=== PATIENT | male | born 1965 | race Caucasian/White ===

== ENCOUNTER 2020-09-05 06:26 | Day surgery (SDC) | payer OTHER ==
[2020-09-05] MEDS ORDERED: Sodium Chloride 0.9% 1,000 ML IV SCH (07:00)
[2020-09-05] MEDS ORDERED: Propofol 200 MG/20 ML SDV ONE ×2 (07:02→07:40)
[2020-09-05] MEDS ORDERED: fentaNYL 100 MCG/2 ML SDV ONE (07:02)
[2020-09-05] MEDS ORDERED: Midazolam 1 MG/ML 2 ML SDV ONE (07:02)
--- NOTE | 2020-09-05 09:12 | OR ---
DATE OF PROCEDURE: 09/05/2020 SURGEON: Sj Mckeon MD PROCEDURE: Colonoscopy. FINDINGS: Large, approximately 2 cm polypoid-type mass at 23 cm. COMPLICATIONS: None. TOASTER OPERATOR: None. PREOPERATIVE DIAGNOSIS: Positive FIT test. POSTOPERATIVE DIAGNOSIS: Positive FIT test. FINDINGS: Large polyp consistent with etiology for positive FIT test. RISKS: Risks, benefits, alternatives and limitations including but not limited to infection, bleeding, perforation, false positives and false negatives were explained to the patient who wished to proceed. PROCEDURE IN DETAIL: The patient was placed in left lateral decubitus position. Digital rectal exam was performed without abnormality. Scope was introduced and advanced atraumatically to the ileocecal valve. A photo was taken. The scope was brought back to the ascending, transverse, descending colon and retroflexed. The aforementioned polyp was identified and completely removed using a snare. Of note, the specimen was transected as a single lesion, however, during the suction and removal process, this into multiple pieces due to its fragile nature. This stump was then reinspected, injected with Opal ink and no abnormalities were noted. The patient tolerated the procedure well. No bleeding was noted from the stump after removal and greater than 8 minutes was spent removing the scope. The patient tolerated the procedure well. Sj Mckeon MD /[id number]
== END 2020-09-05 09:00 | disposition home or self-care (01) ==
LOC: JP.SDS 06:26
PROVIDERS: ATTEND Surgery
DX: D12.6 Benign neoplasm of colon, unspecified (principal); I10 Essential (primary) hypertension
CPT/HCPCS: 45385; J2250; J2704; J3010; J7030; 88305

== ENCOUNTER 2024-11-10 09:12 | Emergency (ER) | payer OTHER ==
[2024-11-10] MEDS ORDERED: LORazepam 2 MG/ML SDV IVPUSH PRN (10:23)
[2024-11-10 10:28] LABS: BASOPHILS PERCENT AUTO 0.3 % (0.1-1.3); EOSINOPHILS ABSOLUTE AUTO 0.03 K/uL (0.00-0.40); EOSINOPHILS PERCENT AUTO 0.5 % (0.0-5.4); HEMATOCRIT 22.6 % (38.4-49.7); HEMOGLOBIN 8.3 g/dL (12.9-16.9); IMMATURE GRAN ABSOLUTE AUTO 0.08 K/uL (0.00-0.23); IMMATURE GRAN PERCENT AUTO 1.2 % (0.0-0.7); LYMPHOCYTES ABSOLUTE AUTO 0.23 K/uL (0.8-3.3); LYMPHOCYTES PERCENT AUTO 3.5 % (11.4-47.7); MEAN CORPUSCULAR HEMOGLOBIN 34.7 pg (31.6-35.5); MEAN CORPUSCULAR HGB CONC 36.7 g/dL (31.6-35.5); MEAN CORPUSCULAR VOLUME 94.6 fL (81.4-99.0); MONOCYTES ABSOLUTE AUTO 0.56 K/uL (0.20-0.90); MONOCYTES PERCENT AUTO 8.5 % (3.3-12.6); PLATELET COUNT,PLT 58 K/uL (130-375); RED BLOOD CELL COUNT 2.39 M/uL (4.14-5.76); WHITE BLOOD CELL COUNT,WBC 6.6 K/uL (3.2-11.0)
[2024-11-10 10:29] LABS: BICARBONATE,VENOUS 26.2 mmol/L; O2 SATURATION VENOUS 34.4; OXYHEMOGLOBIN 33.4 %; PH,VENOUS 7.475 (7.350-7.450); TOTAL HEMOGLOBIN 8.6 g/dL (13.5-18.0)
[2024-11-10 10:32] LABS: PO2 VENOUS 25.1 mm/Hg
[2024-11-10 10:33] LABS: BASOPHILS ABSOLUTE AUTO 0.02 K/uL (0.00-0.10)
[2024-11-10] MEDS: Sodium Chloride 0.9% 1,000 ML IV ONE (10:50)
[2024-11-10 10:59] LABS: A/G RATIO 0.5 (1.2-2.2); ALANINE AMINOTRANSFERASE,ALT 44 U/L (12-78); ALBUMIN 2.1 g/dL (3.4-5.0); ALKALINE PHOSPHATASE 477 U/L (46-116); ASPARTATE AMNIOTRANSFERASE,AST 201 U/L (15-37); BILIRUBIN TOTAL 13.3 mg/dL (0.2-1.0); BLOOD UREA NITROGEN,BUN 12 mg/dL (7-18); CALCIUM 7.2 mg/dL (8.5-10.1); CARBON DIOXIDE,CO2 26 mmol/L (21-32); CHLORIDE,CL 87 mmol/L (100-108); CREATINE KINASE,CK 52 U/L (39-308); CREATININE 0.9 mg/dL (0.8-1.3); EST CRCL DRUG DOSING (CG) 79.75 mL/min; ESTIMATED GFR 98 mL/min (>60); GLUCOSE RANDOM 87 mg/dL (74-106); MAGNESIUM 1.2 mg/dL (1.8-2.4); POTASSIUM,K 3.9 mmol/L (3.6-5.2); PRO B-TYPE NATRIUR PEPT,BNPPRO 126 pg/mL (5-125); PROTEIN TOTAL,TP 6.5 g/dL (6.4-8.2); SODIUM,NA 124 mmol/L (140-148); TSH ULTRASENSITIVE 4.392 uIU/mL (0.358-3.740)
[2024-11-10 11:01] LABS: ANION GAP 14.9 mmol/L (5.0-14.0); TROPONIN I HIGH SENSITIVITY < 4.0 pg/mL (<=60.3)
[2024-11-10] MEDS: Magnesium Sulf/Wat 2 GM/50 mL 2 GM in Premix Bag 1 BAG IV ONE (11:02)
== END 2024-11-10 15:00 ==
LOC: JP.ED 09:12
DX: K70.11 Alcoholic hepatitis with ascites (principal); D64.89 Other specified anemias; E83.42 Hypomagnesemia; D69.6 Thrombocytopenia, unspecified; F10.20 Alcohol dependence, uncomplicated; K21.9 Gastro-esophageal reflux disease without esophagitis; F17.210 Nicotine dependence, cigarettes, uncomplicated; Z79.899 Other long term (current) drug therapy; Y90.9 Presence of alcohol in blood, level not specified
CPT/HCPCS: 36415; 71250; 74176; 80053; 80307; 82140; 82550; 82803; 83605; 83690; 83735; 83880; 84443; 84484; 85025; 93005; 93010; 96365; 96366; 99285; J3475; J7030